=== PATIENT | female | born 1935 | race Caucasian/White ===

== ENCOUNTER → 2017-01-19 | Outpatient (CLI) | payer OTHER, BC ==
[2016-02-09 12:52] VITALS: BP 161/70
[2017-01-19 08:23] LABS: ALBUMIN 3.7 g/dL (3.4-5.0); BLOOD UREA NITROGEN 20 mg/dL (7-18); CALCIUM 9.5 mg/dL (8.5-10.1); CARBON DIOXIDE 27.1 mmol/L (21-32); CHLORIDE 105 mmol/L (98-107); CHOL/HDL RATIO 2.5 (0.0-5.0); CHOLESTEROL 179 mg/dL (0-200); CREATININE 1.17 mg/dL (0.55-1.02); GLUCOSE 110 mg/dL (65-99); HDL CHOLESTEROL 71 mg/dL (40-60); HEMOGLOBIN A1C 6.5 % (4.5-6.2); PHOSPHORUS 3.4 mg/dL (2.6-4.7); SODIUM 140 mmol/L (136-145); TRIGLYCERIDES 136 mg/dL (0-150); eGFR BLACK RACES 57 (>60); eGFR NON BLACK RACES 47 (>60)
[2017-01-19 08:27] LABS: EOSINOPHILS # (AUTO) 0.1 x10^3/uL (0.0-0.2); EOSINOPHILS % (AUTO) 2.5 % (0.9-2.9); HEMATOCRIT 36.5 % (36.0-47.0); HEMOGLOBIN 12.3 g/dL (12.0-16.0); LYMPHOCYTES # (AUTO) 1.2 X10^3/uL (1.3-2.9); LYMPHOCYTES % (AUTO) 23.9 % (21.0-51.0); MEAN CORPUSCULAR HEMOGLOBIN 31.8 pg (27.0-34.0); MEAN CORPUSCULAR HGB CONC 33.5 g/dL (33.0-35.0); MEAN CORPUSCULAR VOLUME 94.9 fL (80.0-100.0); MEAN PLATELET VOLUME 9.4 fL (7.4-11.0); MONOCYTES # (AUTO) 0.5 x10^3/uL (0.3-0.8); NEUTROPHILS % (AUTO) 61.6 % (42.0-75.0); PLATELET COUNT 195 X10^3/uL (150.0-450.0); RED BLOOD COUNT 3.85 X10^6/uL (3.5-5.4); RED CELL DISTRIBUTION WIDTH 13.3 % (11.6-16.5); WHITE BLOOD COUNT 4.8 X10^3/uL (3.6-10.0)
== END ==
LOC: LAB 07:35
PROVIDERS: ATTEND Internal Medicine
DX: I12.9 Hypertensive chronic kidney disease with stage 1 through stage 4 chronic kidney disease, or unspecified chronic kidney disease (principal); E11.9 Type 2 diabetes mellitus without complications
CPT/HCPCS: 36415; 80061; 80069; 83036; 85025

== ENCOUNTER → 2017-04-30 | Outpatient (CLI) | payer OTHER, BC ==
[2016-02-09 12:52] VITALS: BP 161/70
[2017-04-30 08:53] LABS: BASOPHILS % (AUTO) 1.1 % (0.2-1.0); EOSINOPHILS # (AUTO) 0.1 x10^3/uL (0.0-0.2); EOSINOPHILS % (AUTO) 2.8 % (0.9-2.9); HEMATOCRIT 35.4 % (36.0-47.0); HEMOGLOBIN 12.3 g/dL (12.0-16.0); LYMPHOCYTES # (AUTO) 1.3 X10^3/uL (1.3-2.9); LYMPHOCYTES % (AUTO) 28.5 % (21.0-51.0); MEAN CORPUSCULAR HEMOGLOBIN 32.2 pg (27.0-34.0); MEAN CORPUSCULAR HGB CONC 34.6 g/dL (33.0-35.0); MEAN CORPUSCULAR VOLUME 93.2 fL (80.0-100.0); MONOCYTES # (AUTO) 0.5 x10^3/uL (0.3-0.8); MONOCYTES % (AUTO) 11.2 % (0.0-13.0); NEUTROPHILS # (AUTO) 2.5 x10^3/uL (2.2-4.8); NEUTROPHILS % (AUTO) 56.4 % (42.0-75.0); PLATELET COUNT 222 X10^3/uL (150.0-450.0); RED CELL DISTRIBUTION WIDTH 12.9 % (11.6-16.5); WHITE BLOOD COUNT 4.4 X10^3/uL (3.6-10.0)
[2017-04-30 08:57] LABS: ALBUMIN 3.4 g/dL (3.4-5.0); BLOOD UREA NITROGEN 14 mg/dL (7-18); CALCIUM 9.3 mg/dL (8.5-10.1); CARBON DIOXIDE 30.6 mmol/L (21-32); CHLORIDE 100 mmol/L (98-107); PHOSPHORUS 3.5 mg/dL (2.6-4.7); SODIUM 135 mmol/L (136-145); eGFR BLACK RACES 51 (>60); eGFR NON BLACK RACES 42 (>60)
== END | disposition home or self-care (01) ==
LOC: LAB 08:02
PROVIDERS: ATTEND Internal Medicine
DX: I12.9 Hypertensive chronic kidney disease with stage 1 through stage 4 chronic kidney disease, or unspecified chronic kidney disease (principal); N18.3 Chronic kidney disease, stage 3 (moderate); E87.1 Hypo-osmolality and hyponatremia
CPT/HCPCS: 36415; 80069; 85025

== ENCOUNTER → 2017-08-09 | Outpatient (CLI) | payer OTHER, BC ==
[2016-02-09 12:52] VITALS: BP 161/70
[2017-08-09 09:11] LABS: ALBUMIN 3.7 g/dL (3.4-5.0); BLOOD UREA NITROGEN 17 mg/dL (7-18); CALCIUM 8.9 mg/dL (8.5-10.1); CARBON DIOXIDE 24.8 mmol/L (21-32); CHLORIDE 98 mmol/L (98-107); CHOL/HDL RATIO 1.9 (0.0-5.0); CHOLESTEROL 162 mg/dL (0-200); CREATININE 1.34 mg/dL (0.55-1.02); HDL CHOLESTEROL 86 mg/dL (40-60); PHOSPHORUS 3.6 mg/dL (2.6-4.7); SODIUM 133 mmol/L (136-145); TRIGLYCERIDES 61 mg/dL (0-150); URIC ACID 6.2 mg/dL (2.6-6.0); eGFR BLACK RACES 49 (>60); eGFR NON BLACK RACES 40 (>60)
[2017-08-09 09:21] LABS: EOSINOPHILS # (AUTO) 0.1 x10^3/uL (0.0-0.2); EOSINOPHILS % (AUTO) 1.9 % (0.9-2.9); HEMATOCRIT 35.8 % (36.0-47.0); HEMOGLOBIN 12.2 g/dL (12.0-16.0); LYMPHOCYTES # (AUTO) 1.2 X10^3/uL (1.3-2.9); LYMPHOCYTES % (AUTO) 23.9 % (21.0-51.0); MEAN CORPUSCULAR HGB CONC 34.1 g/dL (33.0-35.0); MEAN CORPUSCULAR VOLUME 93.9 fL (80.0-100.0); MEAN PLATELET VOLUME 9.4 fL (7.4-11.0); MONOCYTES # (AUTO) 0.6 x10^3/uL (0.3-0.8); MONOCYTES % (AUTO) 11.4 % (0.0-13.0); NEUTROPHILS % (AUTO) 61.8 % (42.0-75.0); PLATELET COUNT 232 X10^3/uL (150.0-450.0); RED BLOOD COUNT 3.82 X10^6/uL (3.5-5.4); RED CELL DISTRIBUTION WIDTH 13.1 % (11.6-16.5); WHITE BLOOD COUNT 4.8 X10^3/uL (3.6-10.0)
== END ==
LOC: LAB 08:33
PROVIDERS: ATTEND Internal Medicine
DX: I12.9 Hypertensive chronic kidney disease with stage 1 through stage 4 chronic kidney disease, or unspecified chronic kidney disease (principal); N18.3 Chronic kidney disease, stage 3 (moderate)
CPT/HCPCS: 36415; 80061; 80069; 84550; 85025

== ENCOUNTER → 2017-11-01 | Outpatient (CLI) | payer OTHER, BC ==
[2016-02-09 12:52] VITALS: BP 161/70
[2017-11-01 09:23] LABS: BASOPHILS % (AUTO) 1.1 % (0.2-1.0); EOSINOPHILS # (AUTO) 0.1 x10^3/uL (0.0-0.2); EOSINOPHILS % (AUTO) 1.3 % (0.9-2.9); HEMATOCRIT 35.9 % (36.0-47.0); HEMOGLOBIN 12.5 g/dL (12.0-16.0); LYMPHOCYTES # (AUTO) 1.2 X10^3/uL (1.3-2.9); LYMPHOCYTES % (AUTO) 27.7 % (21.0-51.0); MEAN CORPUSCULAR HEMOGLOBIN 32.2 pg (27.0-34.0); MEAN CORPUSCULAR HGB CONC 34.9 g/dL (33.0-35.0); MEAN CORPUSCULAR VOLUME 92.3 fL (80.0-100.0); MONOCYTES # (AUTO) 0.5 x10^3/uL (0.3-0.8); MONOCYTES % (AUTO) 11.2 % (0.0-13.0); NEUTROPHILS # (AUTO) 2.6 x10^3/uL (2.2-4.8); NEUTROPHILS % (AUTO) 58.7 % (42.0-75.0); PLATELET COUNT 218 X10^3/uL (150.0-450.0); RED BLOOD COUNT 3.89 X10^6/uL (3.5-5.4); RED CELL DISTRIBUTION WIDTH 12.8 % (11.6-16.5); WHITE BLOOD COUNT 4.5 X10^3/uL (3.6-10.0)
[2017-11-01 09:36] LABS: HEMOGLOBIN A1C 5.9 %
[2017-11-01 09:43] LABS: BLOOD UREA NITROGEN 25 mg/dL (7-18); CALCIUM 8.7 mg/dL (8.5-10.1); CARBON DIOXIDE 23.5 mmol/L (21-32); CHLORIDE 97 mmol/L (98-107); CREATININE 1.57 mg/dL (0.55-1.02); PHOSPHORUS 3.8 mg/dL (2.6-4.7); SODIUM 130 mmol/L (136-145); URIC ACID 5.7 mg/dL (2.6-6.0); eGFR BLACK RACES 41 (>60); eGFR NON BLACK RACES 34 (>60)
== END ==
LOC: LAB 08:50
PROVIDERS: ATTEND Internal Medicine
DX: I12.9 Hypertensive chronic kidney disease with stage 1 through stage 4 chronic kidney disease, or unspecified chronic kidney disease (principal); N18.3 Chronic kidney disease, stage 3 (moderate); E11.22 Type 2 diabetes mellitus with diabetic chronic kidney disease
CPT/HCPCS: 36415; 80069; 83036; 84550; 85025

== ENCOUNTER 2023-09-22 07:46 | Observation (INO) ==
--- NOTE | 2023-09-22 08:02 | DR.NAUSEAF ---
HPI Time Seen Time Seen by Provider: 09/22/23 08:01 Complaints Chief Complaint Doctors Comments: 38-year-old female presents for evaluation. Patient has been ill over the past 2 days. She is having frequent nausea and vomiting. Nothing caused it that she knows of, no one else ill at home. Having frequent episodes of nausea and vomiting, denies diarrhea, denies abdominal pain. Having no fever, no chills, no URI symptoms. Denies any urinary issues.. States she has been moving her bowels. Reviewed Nurses Notes Reviewed: Yes Source History Provided: Patient Mode of Arrival Mode of Arrival: Wheelchair PMH PM Past Medical History: Hypertension Past Surgical History: Yes Surgical History: Hysterectomy Family History Family Medical History: [place], Coronary Artery Disease and Hypertension Social History Does patient currently use any type of tobacco product: No Alcohol Use: None Do you use any recreational Drugs:: No ROS Review of Systems Constitutional: Weakness Eyes: No Symptoms Reported ENTM: No Symptoms Reported Respiratoy: No Symptoms Reported Cardiovascular: No Symptoms Reported Gastrointestinal/Abdominal: See HPI Genitourinary: No Symptoms Reported Neurological: No Symptoms Reported Musculoskeletal: No Symptoms Reported Integumentary: No Symptoms Reported Psychiatric: No Symptoms Reported All Other Systems: Reviewed and Negative PE Vital Signs Vitals: Vital Signs Temperature 97.9 F Pulse Rate 84 Pulse Rate 103 Pulse Rate 112 Pulse Rate 106 Respiratory Rate 20 Blood Pressure 186/91 Blood Pressure 197/95 Blood Pressure 197/95 Blood Pressure 192/91 Blood Pressure 184/89 Blood Pressure 170/87 Blood Pressure 189/79 Blood Pressure 186/72 Blood Pressure 171/72 Blood Pressure 185/76 Blood Pressure 174/74 Blood Pressure 187/74 Blood Pressure 187/84 Blood Pressure 225/105 Blood Pressure 183/86 Blood Pressure 227/111 Blood Pressure 221/109 O2 Sat by Pulse Oximetry 96 O2 Sat by Pulse Oximetry 97 O2 Sat by Pulse Oximetry 96 O2 Sat by Pulse Oximetry 96 General General Appearance: Alert and In No Apparent Distress Eyes Eye exam: PERRL and EOMI ENT ENT Exam: Mucous Membranes Moist Neck Neck Exam: Normal Inspection; negative Tenderness Respiratory Respiratory Exam: Normal Lung Sounds Bilat; negative Accessory Muscle Use or Respiratory Distress Cardiovascular Cardiovascular Exam: Regular Rate, Normal Rhythm and Normal Heart Sounds Abdominal Exam Abdominal Exam: Normal Bowel Sounds and Soft; negative Tenderness, Guarding or Rebound Extremities Extremities Exam: Normal Inspection Neurologic Neurological Exam: Alert, Oriented X3 and CN II-XII Intact; negative Motor Sensory Deficit Skin Skin Exam: Warm and Dry COURSE Treatment Treatment: 88-year-old female with nausea, vomiting for 2 days. PE benign, patient in no distress. Open initiated. Patient given IV fluids, IV Zofran/protonix. 0935 -still with nausea, no active vomiting. Labs show the sodium below 131, creatinine elevated 2.45. + degree of renal injury, last Cr 1.29 last month. Patient given additional IV fluids, additional IV Zofran. Troponin slightly elevated at 66, probably related to her dehydration. Will obtain EKG and repeat a troponin in 2 hours. 1000 -EKG shows sinus tachycardia, [address] depression of the inferior leads, 2, 3, aVF, as well as V5 V6. Patient in no distress, not having any chest discomfort. If the troponin remains at this level, will recommend admission here for further hydration. Repeat troponin 70.1, minimal bump. Remains chest pain free. 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 Will consult with cardiology in view of abnormal troponin. ROR Labs Reviewed Laboratory Results Reviewed?: Yes 09/22/23 08:25 09/22/23 08:25 Laboratory: WBC 10.8 X10^3/uL (3.6-10.0) H 09/22/23 08:25 RBC 4.82 X10^6/uL (3.5-5.4) 09/22/23 08:25 Hgb 15.3 g/dL (12.0-16.0) 09/22/23 08:25 Hct 44.6 % (36.0-47.0) 09/22/23 08:25 MCV 92.5 fL (80.0-100.0) 09/22/23 08:25 MCH 31.9 pg (27.0-34.0) 09/22/23 08:25 MCHC 34.5 g/dL (33.0-35.0) 09/22/23 08:25 RDW 13.5 % (11.6-16.5) 09/22/23 08:25 Plt Count 296 X10^3/uL (150.0-450.0) 09/22/23 08:25 Plt Count Comment Adequate (ADEQUATE) 09/22/23 08:25 MPV 8.7 fL (7.4-11.0) 09/22/23 08:25 Neut % (Auto) 92.0 % (42.0-75.0) H 09/22/23 08:25 Lymph % (Auto) 4.4 % (21.0-51.0) L 09/22/23 08:25 [place] % (Auto) 3.4 % (0.0-13.0) 09/22/23 08:25 Eos % (Auto) 0.0 % (0.9-2.9) L 09/22/23 08:25 Baso % (Auto) 0.2 % (0.2-1.0) 09/22/23 08:25 Neut # (Auto) 10.0 x10^3/uL (2.2-4.8) H 09/22/23 08:25 Lymph # (Auto) 0.5 X10^3/uL (1.3-2.9) L 09/22/23 08:25 [place] # (Auto) 0.4 x10^3/uL (0.3-0.8) 09/22/23 08:25 Eos # (Auto) 0.0 x10^3/uL (0.0-0.2) 09/22/23 08:25 Baso # (Auto) 0.0 X10^3/uL (0.0-0.1) 09/22/23 08:25 Absolute Nucleated RBC 0.1 /100WBC 09/22/23 08:25 Total Counted 100 09/22/23 08:25 Neutrophils % (Manual) 87 % (39-76) H 09/22/23 08:25 Lymphocytes % (Manual) 5 % (13-43) L 09/22/23 08:25 Monocytes % (Manual) 8 % (4-9) 09/22/23 08:25 Plt Morphology Comment Normal (NORMAL) 09/22/23 08:25 RBC Morphology Normal (NORMAL) 09/22/23 08:25 Sodium 131 mmol/L (136-145) L 09/22/23 08:25 Corrected Sodium 132 mmol/L (136-145) L 09/22/23 08:25 Potassium 3.6 mmol/L (3.5-5.1) 09/22/23 08:25 Chloride 91 mmol/L (98-107) L 09/22/23 08:25 Carbon Dioxide 29.2 mmol/L (21-32) 09/22/23 08:25 BUN 54 mg/dL (7-18) H 09/22/23 08:25 Creatinine 2.45 mg/dL (0.55-1.02) H 09/22/23 08:25 Est GFR (MDRD) Af Amer 24 (>60) L 09/22/23 08:25 Est GFR (MDRD) Non-Af 20 (>60) L 09/22/23 08:25 Glucose 160 mg/dL (65-99) H 09/22/23 08:25 Calcium 9.1 mg/dL (8.5-10.1) 09/22/23 08:25 Corrected Calcium TNP 09/22/23 08:25 Total Bilirubin 0.60 mg/dL (0.2-1.0) 09/22/23 08:25 AST 25 Units/L (15-37) 09/22/23 08:25 ALT 17 Units/L (12-78) 09/22/23 08:25 Alkaline Phosphatase 99 Units/L (46-116) 09/22/23 08:25 Troponin I High Sens 70.1 ng/L (4.0-60.0) H* 09/22/23 10:33 Total Protein 7.9 g/dL (6.4-8.2) 09/22/23 08:25 Albumin 3.7 g/dL (3.4-5.0) 09/22/23 08:25 Globulin 4.2 g/dL (2.5-4.5) 09/22/23 08:25 Albumin/Globulin Ratio 0.9 Ratio (1.1-2.1) L 09/22/23 08:25 Lipase 31 Units/L (16-77) 09/22/23 08:25 Na low at 131, Cr elevated 2.45. EKG Rate: 110 [place]: Normal Rhythm: ST Block: RBBB ST: Inf (ST depression of inferior leads, V5,V6.) Opioid Opioid Risk Tool Age (Javier box if 16-45): No History of Preadolescent Sexual Abuse: No Total: 0 Total Score Risk Category: Low Risk Copyright: [place] DUFFY predicting aberrant behaviors Discharge Plan Diagnosis Discharge Problem: Vomiting, Acute kidney injury, Elevated troponin Discharge Plan Patient Disposition: ADMITTED INPATIENT Condition: Stable Orders to Discharge Patient Discharge Orders: Transfer (Routine); Ordered 09/22/23 Ordered By: Tha Parkinson
[2023-09-22] MEDS ORDERED: ZOFRAN INJ 4 MG VIAL IVP ONE ×2 (08:06→09:37)
[2023-09-22] MEDS ORDERED: PROTONIX INJ 40 MG VIAL IVP ONE (08:06)
[2023-09-22] MEDS ORDERED: NS 500 ML IV 500 ML IV ONE ×2 (08:07→08:08)
[2023-09-22] MEDS ORDERED: ZOFRAN INJ 4 MG VIAL ONE ×2 (08:08→09:34)
[2023-09-22] MEDS ORDERED: PROTONIX INJ 40 MG VIAL ONE (08:08)
[2023-09-22] MEDS ORDERED: APRESOLINE INJ 20 MG VIAL ONE (08:32)
[2023-09-22] MEDS ORDERED: APRESOLINE INJ 20 MG VIAL IVP ONE (08:34)
[2023-09-22 09:00] LABS: BASOPHILS % (AUTO) 0.2 % (0.2-1.0); HEMATOCRIT 44.6 % (36.0-47.0); HEMOGLOBIN 15.3 g/dL (12.0-16.0); LYMPHOCYTES # (AUTO) 0.5 X10^3/uL (1.3-2.9); LYMPHOCYTES % (AUTO) 4.4 % (21.0-51.0); MEAN CORPUSCULAR HEMOGLOBIN 31.9 pg (27.0-34.0); MEAN CORPUSCULAR HGB CONC 34.5 g/dL (33.0-35.0); MEAN CORPUSCULAR VOLUME 92.5 fL (80.0-100.0); MEAN PLATELET VOLUME 8.7 fL (7.4-11.0); MONOCYTES # (AUTO) 0.4 x10^3/uL (0.3-0.8); MONOCYTES % (AUTO) 3.4 % (0.0-13.0); PLATELET COUNT 296 X10^3/uL (150.0-450.0); RED BLOOD COUNT 4.82 X10^6/uL (3.5-5.4); RED CELL DISTRIBUTION WIDTH 13.5 % (11.6-16.5); WHITE BLOOD COUNT 10.8 X10^3/uL (3.6-10.0)
[2023-09-22 09:29] LABS: ALANINE AMINOTRANSFERASE 17 Units/L (12-78); ALBUMIN 3.7 g/dL (3.4-5.0); ALKALINE PHOSPHATASE 99 Units/L (46-116); ASPARTATE AMINO TRANSFERASE 25 Units/L (15-37); BLOOD UREA NITROGEN 54 mg/dL (7-18); CALCIUM 9.1 mg/dL (8.5-10.1); CARBON DIOXIDE 29.2 mmol/L (21-32); CHLORIDE 91 mmol/L (98-107); COR NA(FOR HYPERGLY) 132 mmol/L (136-145); CREATININE 2.45 mg/dL (0.55-1.02); GLUCOSE 160 mg/dL (65-99); LIPASE 31 Units/L (16-77); POTASSIUM 3.6 mmol/L (3.5-5.1); SODIUM 131 mmol/L (136-145); TOTAL PROTEIN 7.9 g/dL (6.4-8.2); eGFR NON BLACK RACES 20 (>60)
[2023-09-22 09:30] LABS: PLATELET MORPHOLOGY COMMENT NORMAL (NORMAL)
[2023-09-22] MEDS ORDERED: NS 500 ML IV 500 ML IV SCH (09:31)
[2023-09-22] MEDS ORDERED: NS 1,000 ML IV 1,000 ML ONE (09:33)
[2023-09-22] MEDS: NS 1,000 ML IV 1,000 ML IV SCH ×2 (09:39→18:15)
--- NOTE | 2023-09-22 10:01 | EKG ---
Test Reason : vomiting, elevated troponin Blood Pressure : */* mmHG Vent. Rate : 110 BPM Atrial Rate : 110 BPM P-R Int : 124 ms QRS Dur : 110 ms QT Int : 362 ms P-R-T Axes : 77 42 -64 degrees QTc Int : 489 ms Sinus tachycardia with premature supraventricular complexes Possible Left atrial enlargement Right bundle branch block Marked ST abnormality, possible inferior subendocardial injury Abnormal ECG No previous ECGs available Confirmed by Junior Hernandez MD ([id number]) on 09/22/2023 1:53:07 PM Referred By: Confirmed By: Junior Hernandez MD
[2023-09-22] MEDS ORDERED: LOPRESSOR INJ 5 MG AMP IVP ONE ×2 (11:11→13:22)
[2023-09-22] MEDS ORDERED: LOPRESSOR INJ 5 MG AMP ONE ×2 (11:12→13:23)
[2023-09-22] MEDS ORDERED: CONSULT PHARMACY - POTASSIUM & MAGNESIUM XX SCH ×2 (12:00→19:00)
[2023-09-22] MEDS ORDERED: ZOFRAN INJ 4 MG VIAL IVP PRN (12:00)
[2023-09-22] MEDS ORDERED: POTASSIUM CHLORIDE LIQ PO NR (14:00)
[2023-09-22] MEDS ORDERED: ASPIRIN ONE (14:14)
--- NOTE | 2023-09-22 14:33 | EKG ---
Test Reason : EKG CHANGES Blood Pressure : */* mmHG Vent. Rate : 87 BPM Atrial Rate : 87 BPM P-R Int : 140 ms QRS Dur : 112 ms QT Int : 410 ms P-R-T Axes : 79 15 -41 degrees QTc Int : 493 ms Normal sinus rhythm Right bundle branch block T wave abnormality, consider inferior ischemia Abnormal ECG When compared with ECG of 22-SEP-2023 09:47, premature supraventricular complexes are no longer present ST no longer depressed in Inferior leads ST less depressed in Anterior leads T wave inversion no longer evident in Lateral leads Confirmed by Junior Hernandez MD ([id number]) on 09/23/2023 7:48:18 AM Referred By: Confirmed By: Junior Hernandez MD
[2023-09-22] MEDS ORDERED: MAG-OX TAB PO ONE (15:00)
[2023-09-22] MEDS ORDERED: MICRO K EXTEN CAP 10 MEQ PO NR (15:00)
[2023-09-22] MEDS ORDERED: NITRODUR PATCH 0.2 MG/HR TD ONE (15:10)
[2023-09-22] MEDS ORDERED: LOVENOX INJ 60 MG SYR SC NR (15:10)
--- NOTE | 2023-09-22 15:10 | DR.CONSULT ---
CONSULT Consultation for Day of: Date: 09/22/23 Chief Complaint Chief Complaint: 88 yo female with pafib, cad with stent to RCA 2017- came to ER because n/v since Wednesday- denied CP- couldnt hold down meds - bp as high as 220 in er- hr 100s-no asa/doac for awhile- takes coreg/clonidine for bp- labs showed cr 2.45/bun 54 ( up from usual most likely due to vol depletion- also # trops elevated- ekg: marked st abnormality from old ekg c/w subendocardial [place]- f/u ekg: st improved alittle Allergies Allergies Allergy/AdvReac Type Severity Reaction Status Date / Time No Known Allergies Allergy Verified 09/22/23 08:05 Past Medical History Past Medical History: Hypertension Past Surgical History Surgical History: Hysterectomy Family History Family Medical History: [place], Coronary Artery Disease and Hypertension Social History Does patient currently use any type of tobacco product: No Have you used tobacco products in the last 12 months: No Type of Tobacco Use: None Does any household member use tobacco: No Alcohol Use: None Drug Use: None Medications Home Medications: No Known Allergies Allergy (Verified 09/22/23 08:05) CONTINUE taking the following medications carvedilol 3.125 mg tablet 3.125 mg PO QDAY 09/22/23 [History] clonidine HCl 0.2 mg tablet 0.2 mg PO BID 09/22/23 [History] clopidogrel 75 mg tablet 75 mg PO QDAY 09/22/23 [History] eplerenone 25 mg tablet 25 mg PO QDAY 09/22/23 [History] ondansetron 8 mg disintegrating tablet 8 mg PO Q8H PRN 09/22/23 [History] Physical Exam Vital Signs: Vital Signs Temperature 97.9 F Temperature 97.9 F Pulse Rate 84 Pulse Rate 90 Pulse Rate 91 Pulse Rate 89 Pulse Rate 88 Pulse Rate 84 Pulse Rate 103 Pulse Rate 112 Pulse Rate 106 Respiratory Rate 18 Respiratory Rate 20 Blood Pressure 130/70 Blood Pressure 218/93 Blood Pressure 174/103 Blood Pressure 181/112 Blood Pressure 181/86 Blood Pressure 188/90 Blood Pressure 186/91 Blood Pressure 197/95 Blood Pressure 197/95 Blood Pressure 192/91 Blood Pressure 184/89 Blood Pressure 170/87 Blood Pressure 189/79 Blood Pressure 186/72 Blood Pressure 171/72 Blood Pressure 185/76 Blood Pressure 174/74 Blood Pressure 187/74 Blood Pressure 187/84 Blood Pressure 225/105 Blood Pressure 183/86 Blood Pressure 227/111 Blood Pressure 221/109 O2 Sat by Pulse Oximetry 97 O2 Sat by Pulse Oximetry 96 O2 Sat by Pulse Oximetry 96 O2 Sat by Pulse Oximetry 97 O2 Sat by Pulse Oximetry 97 O2 Sat by Pulse Oximetry 96 O2 Sat by Pulse Oximetry 97 O2 Sat by Pulse Oximetry 96 O2 Sat by Pulse Oximetry 96 alert ox3 p84 bp 130/70 no jvd, clear lungs rrr soft lennie no edema Plan (1) NSTEMI (non-ST elevated myocardial infarction): Status: Acute Narrative Support Text: feel n/v were her cardiac symptoms or no meds and elevated hr/bp caused event Plan: volume to reverse CR- asa/bb/heparin/nitro- transfer to [facility] /[facility] in am for cath as long as cr improving (2) Hypertension: Status: Acute (3) Acute kidney injury: Status: Acute
[2023-09-22] MEDS ORDERED: ASPIRIN 81 MG CHEWTAB PO SCH (16:00)
[2023-09-22 16:21] LABS: BILIRUBIN,URINE NEGATIVE (NEGATIVE); BLOOD/HEMOGLOBIN,URINE 3+ (NEGATIVE); GLUCOSE, URINE NEGATIVE (NEGATIVE); KETONES,URINE 1+ (NEGATIVE); LEUKOCYTE ESTERASE ,URINE NEGATIVE (NEGATIVE); NITRITES,URINE NEGATIVE (NEGATIVE); PROTEIN,URINE 4+ (NEGATIVE); UROBILINOGEN,URINE NORMAL (NORMAL)
[2023-09-22] MEDS ORDERED: COREG TAB 3.125 MG ONE (16:21)
[2023-09-22] MEDS ORDERED: CATAPRES TAB 0.2 MG ONE (16:21)
[2023-09-22] MEDS: CATAPRES TAB 0.2 MG PO SCH ×2 (16:26→20:13)
[2023-09-22 16:29] LABS: APPEARANCE,URINE SLIGHTLY HAZY (CLEAR); COLOR,URINE YELLOW (YELLOW)
[2023-09-22 16:30] LABS: BACTERIA,URINE TRACE /HPF (NEGATIVE); RBC,URINE 0-2 /HPF (0-3); SQUAMOUS EPITHELIAL CELL,UR FEW /HPF (NEGATIVE)
[2023-09-22 16:31] LABS: HYALINE CASTS, URINE FEW /LPF (NEGATIVE)
[2023-09-22 18:36] LABS: CARBON DIOXIDE 30.1 mmol/L (21-32); CREATININE 2.05 mg/dL (0.55-1.02); POTASSIUM 3.7 mmol/L (3.5-5.1)
[2023-09-22 18:45] LABS: CALCIUM 8.3 mg/dL (8.5-10.1)
[2023-09-22] MEDS: MAG-OX TAB PO SCH ×2 (20:13→21:11)
[2023-09-22] MEDS ORDERED: K-DUR TAB 20 MEQ PO SCH (21:00)
[2023-09-22 23:21] VITALS: PULSE 68; O2SAT 98
[2023-09-23] MEDS: NS 1,000 ML IV 1,000 ML IV SCH (02:13)
[2023-09-23 05:19] VITALS: BP 115/58; RESP 20; TEMP 98
[2023-09-23] MEDS ORDERED: PROTONIX INJ 40 MG VIAL IVP SCH (09:00)
[2023-09-23] MEDS ORDERED: COREG TAB 3.125 MG PO SCH (09:00)
[2023-09-23] MEDS ORDERED: PLAVIX PO SCH (09:00)
[2023-09-23] MEDS ORDERED: EPLERENONE 25 MG PO SCH (09:00)
== END 2023-09-23 05:10 | disposition short-term general hospital (02) ==
LOC: ER 07:46 → U 07:46 → MED/SURG 07:46 → U 11:50
PROVIDERS: ADMIT Obstetrics & Gynecology Obstetrics; ATTEND Obstetrics & Gynecology Obstetrics
DX: R11.2 Nausea with vomiting, unspecified; R73.09 Other abnormal glucose; R53.1 Weakness; I21.4 Non-ST elevation (NSTEMI) myocardial infarction; E87.6 Hypokalemia; E83.42 Hypomagnesemia; R77.8 Other specified abnormalities of plasma proteins; I10 Essential (primary) hypertension; N17.8 Other acute kidney failure

== ENCOUNTER 2025-02-18 15:57 | Observation (INO) ==
--- NOTE | 2025-02-18 16:42 | DR.GENAD ---
HPI Time Seen Time Seen by Provider: 02/18/25 16:41 PCP Primary Care Physician: Tony HPI Comment HPI Comment: Patient states she has stopped her anticoagulation medicines about 2 weeks ago. Today she had an episode of difficulty with her speech and weakness in her left hand dropping her pen. Patient was brought into the ER and stroke protocol was initiated. I spoke with Dr. Kenny from [facility] and he is suspected TIA instead of stroke. He recommended starting Plavix 200 mg today as a loading dose as well as aspirin 325. He recommended MRI in the morning and a TTE. CTA of head and neck was ordered but unable to perform due to patient's renal function. Complaint/Symptoms Chief Complaint:: Patient c/o cough, decreased appetite and no urine for 2 days until today when she did urinate. Also reports that she was doing a cross word puzzle and dropped her pen and then couldnt talk for approx 5 minutes. she does not have trouble speaking at this time. neuro is intact with equal coverage specialist rn. COVID-19 Coronavirus risk:travel/contact w/high risk person: No Has patient experienced Coronavirus symptoms: No Source History Provided: Patient and Family Member Mode of Arrival Mode of Arrival: Wheelchair Timing Onset of Chief Complaint: 02/18/25 PMH PMH Past Medical History: Yes Past Medical History: CHF, Hypertension and CA Past Medical History Comment: bleeding ulcer Past Surgical History: Yes Surgical History: Angioplasty/Stents and Hysterectomy Family History History of Family Medical Conditions: Yes Family Medical History: [place], Coronary Artery Disease and Hypertension Social History Type of Tobacco Use: None Alcohol Use: None Do you use any recreational Drugs:: No Lives With: Family Lives Where: Home Travel Risk Coronavirus risk:travel/contact w/high risk person: No Has patient experienced Coronavirus symptoms: No Infectious screening Have you traveled outside the country in the last 6 months?: No Isolation: Standard ROS Review of Systems Constitutional: No Symptoms Reported Eyes: No Symptoms Reported ENTM: No Symptoms Reported Respiratoy: No Symptoms Reported Cardiovascular: No Symptoms Reported Gastrointestinal/Abdominal: No Symptoms Reported Genitourinary: No Symptoms Reported Neurological: See HPI (Symptoms resolved at this time) Musculoskeletal: No Symptoms Reported Integumentary: No Symptoms Reported Hematologic/Lymphatic: No Symptoms Reported Endocrine: No Symptoms Reported Psychiatric: No Symptoms Reported All Other Systems: Reviewed and Negative PE Vital Signs Vitals: Vital Signs Temperature 98.1 F Pulse Rate 90 Respiratory Rate 22 Blood Pressure 137/77 O2 Sat by Pulse Oximetry 96 General Limitations: No Limitations General Appearance: Alert and In No Apparent Distress Head Head Exam: Normal Inspection Eyes Eye exam: Normal Appearance ENT ENT Exam: Normal Exam External Ear Exam: Normal External Inspection TM/Canal Exam: Bilateral: Normal Nose Exam: Normal Nose Exam Mouth Exam: Normal Inspection Throat Exam: Normal Inspection Neck Neck Exam: Normal Inspection Chest Chest Inspection: Normal Inspection Respiratory Respiratory Exam: Normal Lung Sounds Bilat Respiratory Exam: Bilateral: Clear to Auscultation Cardiovascular Cardiovascular Exam: Regular Rate and Normal Rhythm Abdominal Exam Abdominal Exam: Normal Inspection, Normal Bowel Sounds and Soft Extremities Extremities Exam: Normal Inspection Back Back Exam: Normal Inspection Neurologic Neurological Exam: Alert and Oriented X3 Psychiatric Psychiatric Exam: Normal Affect and Normal Mood Skin Skin Exam: Warm, Dry, Intact and Normal Color COURSE Treatment Treatment: Patient symptoms completely resolved, her blood pressure did elevate again. Continuing to manage. Discussed need of admission with patient and family and they are agreeable to admission. Consultation Called: 19:33 Consultation Comments: Discussed case with Dr. Lam and he is agreeable to admission. Discussed case with with teleneurology. He recommended admission and starting aspirin and Plavix. The CTA of head and neck that he recommended was unable to be performed due to patient's renal function. He recommended MRI in the morning and TTE as well. [facility]OR Labs Reviewed 02/18/25 16:23 02/18/25 16:23 Laboratory: WBC 7.0 X10^3/uL (3.6-10.0) 02/18/25 16:23 RBC 4.00 X10^6/uL (3.5-5.4) 02/18/25 16:23 Hgb 12.7 g/dL (12.0-16.0) 02/18/25 16:23 Hct 36.4 % (36.0-47.0) 02/18/25 16:23 MCV 91.0 fL (80.0-100.0) 02/18/25 16:23 MCH 31.7 pg (27.0-34.0) 02/18/25 16:23 MCHC 34.8 g/dL (33.0-35.0) 02/18/25 16:23 RDW 14.3 % (11.6-16.5) 02/18/25 16:23 Plt Count 265 X10^3/uL (150.0-450.0) 02/18/25 16:23 MPV 8.6 fL (7.4-11.0) 02/18/25 16:23 Neut % (Auto) 54.1 % (42.0-75.0) 02/18/25 16:23 Lymph % (Auto) 33.7 % (21.0-51.0) 02/18/25 16:23 [place] % (Auto) 10.2 % (0.0-13.0) 02/18/25 16:23 Eos % (Auto) 1.1 % (0.9-2.9) 02/18/25 16:23 Baso % (Auto) 0.9 % (0.2-1.0) 02/18/25 16:23 Neut # (Auto) 3.8 x10^3/uL (2.2-4.8) 02/18/25 16:23 Lymph # (Auto) 2.4 X10^3/uL (1.3-2.9) 02/18/25 16:23 [place] # (Auto) 0.7 x10^3/uL (0.3-0.8) 02/18/25 16:23 Eos # (Auto) 0.1 x10^3/uL (0.0-0.2) 02/18/25 16:23 Baso # (Auto) 0.1 X10^3/uL (0.0-0.1) 02/18/25 16:23 Absolute Nucleated RBC 0.1 /100WBC 02/18/25 16:23 PT 13.4 SECONDS (11.8-14.3) 02/18/25 16:23 INR Target Range - 02/18/25 16:23 INR 1.01 (0.8-1.3) 02/18/25 16:23 APTT 29.8 SECONDS (22.9-36.5) 02/18/25 16:23 PTT Comment - 02/18/25 16:23 Fibrinogen 433 mg/dL (239-489) 02/18/25 16:23 Sodium 128 mmol/L (136-145) L 02/18/25 16:23 Corrected Sodium TNP 02/18/25 16:23 Potassium 3.9 mmol/L (3.5-5.1) 02/18/25 16:23 Chloride 92 mmol/L (98-107) L 02/18/25 16:23 Carbon Dioxide 24.9 mmol/L (21-32) 02/18/25 16:23 BUN 31 mg/dL (7-18) H 02/18/25 16:23 Creatinine 2.84 mg/dL (0.55-1.02) H 02/18/25 16:23 Est GFR (MDRD) Af Amer 20 (>60) L 02/18/25 16:23 Est GFR (MDRD) Non-Af 17 (>60) L 02/18/25 16:23 Glucose 97 mg/dL (65-99) 02/18/25 16:23 POC Glucose (mg/dL) 101 mg/dL (65-99) H 02/18/25 16:48 Hemoglobin A1c 5.9 % 02/18/25 16:23 Calcium 9.0 mg/dL (8.5-10.1) 02/18/25 16:23 Corrected Calcium TNP 02/18/25 16:23 Total Bilirubin 0.40 mg/dL (0.2-1.0) 02/18/25 16:23 AST 20 Units/L (15-37) 02/18/25 16:23 ALT 16 Units/L (12-78) 02/18/25 16:23 Alkaline Phosphatase 97 Units/L (46-116) 02/18/25 16:23 Creatine Kinase 68 Units/L (26-192) 02/18/25 16:23 Troponin I High Sens 55.9 ng/L (4.0-60.0) 02/18/25 16:23 B-Natriuretic Peptide 91.3 pg/mL (0-79) H 02/18/25 16:23 Total Protein 8.6 g/dL (6.4-8.2) H 02/18/25 16:23 Albumin 4.0 g/dL (3.4-5.0) 02/18/25 16:23 Globulin 4.6 g/dL (2.5-4.5) H 02/18/25 16:23 Albumin/Globulin Ratio 0.9 Ratio (1.1-2.1) L 02/18/25 16:23 Triglycerides 123 mg/dL (0-150) 02/18/25 16:23 Cholesterol 175 mg/dL (0-200) 02/18/25 16:23 LDL Cholesterol, Calc 76 mg/dL (0-100) 02/18/25 16:23 HDL Cholesterol 74 mg/dL (40-60) H 02/18/25 16:23 Cholesterol/HDL Ratio 2.4 (0.0-5.0) 02/18/25 16:23 Blood Type B POSITIVE 02/18/25 17:28 Blood Type B POSITIVE 02/18/25 17:28 Antibody Screen Negative 02/18/25 17:28 Opioid Opioid Risk Tool Age (Javier box if 16-45): No History of Preadolescent Sexual Abuse: No Total: 0 Total Score Risk Category: Low Risk Copyright: [place] DUFFY predicting aberrant behaviors Discharge Plan Diagnosis Discharge Problem: Brain TIA, Hypertension, Labile blood pressure, CKD (chronic kidney disease), Acute kidney injury Discharge Plan Patient Disposition: ADMITTED INPATIENT Condition: Stable Prescriptions: No Action carvedilol 3.125 mg tablet 3.125 mg PO BID Health Concerns: Post Hospitalization: new medications and changes needed to prevent readmission or further decline. Pt educated and given instructions on all concerns. Plan of Treatment: Continue with present treatment and follow up plan. Pt is to keep follow up appointment as instructed and take medications as ordered. Orders to Discharge Patient Discharge Orders: Transfer (Routine); Ordered 02/18/25 Ordered By: Manny Gleason Follow ups/Referrals Follow ups/Referrals: ,Misc [Primary Care Provider] - 3 days Instructions Stand Alone Forms: Find Help Web Site, Post Hospital Follow Up Care Print Language: EMIRATI
--- NOTE | 2025-02-18 16:52 | EKG ---
Test Reason : stroke alert Blood Pressure : */* mmHG Vent. Rate : 78 BPM Atrial Rate : 78 BPM P-R Int : 142 ms QRS Dur : 114 ms QT Int : 426 ms P-R-T Axes : 79 50 43 degrees QTc Int : 485 ms Normal sinus rhythm Incomplete right bundle branch block Nonspecific ST abnormality Abnormal ECG When compared with ECG of 22-SEP-2023 14:22, T wave inversion less evident in Inferior leads T wave inversion no longer evident in Anterior leads Confirmed by Junior Hernandez MD ([id number]) on 02/19/2025 7:20:49 AM Referred By: Confirmed By: Junior Hernandez MD
[2025-02-18 17:08] LABS: MEAN PLATELET VOLUME 8.6 fL (7.4-11.0); RED CELL DISTRIBUTION WIDTH 14.3 % (11.6-16.5)
[2025-02-18 17:15] LABS: INR 1.01 (0.8-1.3)
[2025-02-18] MEDS: ASPIRIN PO ONE (17:16)
[2025-02-18] MEDS: PLAVIX PO ONE (17:17)
[2025-02-18 17:19] LABS: CHOL/HDL RATIO 2.4 (0.0-5.0); CREATININE 2.84 mg/dL (0.55-1.02); eGFR NON BLACK RACES 17 (>60)
--- NOTE | 2025-02-18 17:34 | CT ---
EXAM: BRAIN W/O CON HISTORY: stroke alert; COMPARISON: CT of the brain March 21, 2018 TECHNIQUE: CT of the brain without contrast FINDINGS: No hemorrhage or extra-axial collection. No midline shift or mass effect. Appropriate ventricular size. Microvascular ischemic changes are noted in the bilateral periventricular white matter. The mastoid air cells are clear. Mucoperiosteal thickening in the right maxillary sinus is moderate. No skull fracture. IMPRESSION: Nothing acute. All CT scans at this facility use dose modulation, iterative reconstruction, and/or weight based dosing when appropriate to reduce radiation dose to as low as reasonably achievable. THIS IS AN ELECTRONICALLY VERIFIED FINAL REPORT 02/18/2025 5:31 PM - Electronically signed by Raffaele Goodrich MD
--- NOTE | 2025-02-18 17:57 | DR.CONSULT ---
CONSULT Consultation for Day of: Date: 02/18/25 Chief Complaint Chief Complaint: [facility] Patient Name: Nory Santana Date of : 1935 Identification Number: Date of Service: 02/18/2025 16:43:58 Diagnosis: G45.9 - Transient cerebral ischemic attack, unspecified Impression: 89 yo LH F with PMH of HTN, CHF, CA presents to ED with cough, decreased appetite and transient left hand weakness and speech difficulty. NIHSS of 0. CTH without hemorrhage. CTA head and neck pending. Thrombolytics not recommended due to resolved symptoms. Syndrome is most concerning for a transient ischemic attack. Recommend initiating dual anti platelet therapy, and admission for expedited stroke work up. Our recommendations are outlined below. Recommendations: Stroke/Telemetry Floor Neuro Checks (Q4) Bedside Swallow Eval DVT Prophylaxis IV Fluids, Normal Saline Euglycemia and Avoid Hyperthermia (PRN Acetaminophen) Bolus with Clopidogrel 300 mg bolus x1 and initiate dual antiplatelet therapy with Aspirin 81 mg daily and Clopidogrel 75 mg daily Antihypertensives PRN if Blood pressure is greater than 220/120 or there is a concern for End organ damage/contraindications for permissive HTN. If blood pressure is greater than 220/120 give labetalol PO or IV or Vasotec IV with a goal of 15% reduction in BP during the first 24 hours. Sign Out: Discussed with Emergency Department Provider Advanced Imaging: Advanced imaging has been ordered. Results pending. Metrics: Last Known Well: 02/18/2025 12:00:15 Dispatch Time: 02/18/2025 16:43:58 Arrival Time: 02/18/2025 15:57:23 Initial Response Time: 02/18/2025 16:46:52 Symptoms: left hand weakness, speech difficulty. Initial patient interaction: 02/18/2025 16:58:13 NIHSS Assessment Completed: 02/18/2025 17:14:49 Patient is not a candidate for Thrombolytic. Thrombolytic Medical Decision: 02/18/2025 17:16:50 Patient was not deemed candidate for Thrombolytic because of following reasons: Resolved symptoms . CT Head: I personally reviewed all the CT images that were available to me and it showed: no hemorrhage Primary Provider Notified of Diagnostic Impression and Management Plan on: 02/18/2025 17:40:03 History of Present Illness: Patient is a 89 year old Female. Patient was brought by private transportation with symptoms of left hand weakness, speech difficulty. 89 yo LH F with PMH of HTN, CHF, CA presents to ED with cough, decreased appetite and transient left hand weakness and speech difficulty. Patient reports that she had left hand weakness and dropped a pen out of her hand this morning doing a crossword puzzle. Then had trouble getting her words out for about 5 minutes before symptoms resolved. She denies FERREIRA, chest pain, fever, vomiting, vision changes. She reports stopping blood thinners some time ago due to bleeding issues. Past Medical History: Coronary Artery Disease Medications: No Anticoagulant use No Antiplatelet use Reviewed EMR for current medications Allergies: NKDA Social History: Smoking: Yes Family History: There is no family history of premature cerebrovascular disease pertinent to this consultation ROS : 14 Points Review of Systems was performed and was negative except mentioned in HPI. Past Surgical History: There Is No Surgical History Contributory To Todays Visit Examination: BP(137/77), Pulse(90), 1A: Level of Consciousness - Alert; keenly responsive + 0 1B: Ask Month and Age - Both Questions Right + 0 1C: Blink Eyes & Squeeze Hands - Performs Both Tasks + 0 2: Test Horizontal Extraocular Movements - Normal + 0 3: Test Visual [place] - No Visual Loss + 0 4: Test Facial Palsy (Use Grimace if Obtunded) - Normal symmetry + 0 5A: Test Left Arm Motor Drift - No Drift for 10 Seconds + 0 5B: Test Right Arm Motor Drift - No Drift for 10 Seconds + 0 6A: Test Left Leg Motor Drift - No Drift for 5 Seconds + 0 6B: Test Right Leg Motor Drift - No Drift for 5 Seconds + 0 7: Test Limb Ataxia (FNF/Heel-Ruiz) - No Ataxia + 0 8: Test Sensation - Normal; No sensory loss + 0 9: Test Language/Aphasia - Normal; No aphasia + 0 10: Test Dysarthria - Normal + 0 11: Test Extinction/Inattention - No abnormality + 0 NIHSS Score: 0 Pre-Morbid Modified Damián Scale: 0 Points = No symptoms at all Spoke with : Dr. Leavitt This consult was conducted in real time using interactive audio and video technology. Patient was informed of the technology being used for this visit and agreed to proceed. Patient located in hospital and provider located at home/office setting. Patient is being evaluated for possible acute neurologic impairment and high probability of imminent or life-threatening deterioration. I spent total of 51 minutes providing care to this patient, including time for face to face visit via telemedicine, review of medical records, imaging studies and discussion of findings with providers, the patient and/or family. Dr Fito [facility] For Inpatient follow-up with [facility] physician please call [facility] at . As we are not an outpatient service for any post hospital discharge needs please contact the hospital for assistance. If you have any questions for the [facility] physicians or need to reconsult for clinical or diagnostic changes please contact us via [facility] at . Allergies Allergies Allergy/AdvReac Type Severity Reaction Status Date / Time No Known Allergies Allergy Verified 02/18/25 16:16 Past Medical History Past Medical History: CHF, Hypertension and CA Past Surgical History Surgical History: Angioplasty/Stents and Hysterectomy Family History Family Medical History: CA, Coronary Artery Disease and Hypertension Social History Type of Tobacco Use: None Alcohol Use: None Medications Home Medications: No Known Allergies Allergy (Verified 02/18/25 16:16) Physical Exam Vital Signs: Vital Signs Temperature 98.1 F Pulse Rate 90 Respiratory Rate 22 Blood Pressure 137/77 O2 Sat by Pulse Oximetry 96
[2025-02-18] MEDS: NS 500 ML IV 500 ML IV ONE (17:59)
[2025-02-18] MEDS: APRESOLINE INJ 20 MG VIAL IVP ONE ×2 (19:01→19:38)
[2025-02-18] MEDS: ZOFRAN INJ 4 MG VIAL IVP ONE (20:06)
[2025-02-18] MEDS: CATAPRES TAB 0.2 MG PO ONE (20:17)
[2025-02-18] MEDS ORDERED: CONSULT PHARMACY - POTASSIUM & MAGNESIUM XX SCH (20:35)
[2025-02-18] MEDS ORDERED: ZOFRAN ODT PO PRN (20:35)
[2025-02-18] MEDS ORDERED: NS 1,000 ML IV 1,000 ML ONE (20:38)
[2025-02-18] MEDS: NS 1,000 ML IV 1,000 ML IV SCH ×2 (20:48→23:30)
[2025-02-18] MEDS: COREG TAB 3.125 MG PO SCH (21:55)
[2025-02-18] MEDS: PHENERGAN INJ 25 MG IM PRN (21:56)
[2025-02-19] MEDS: ZOFRAN INJ 4 MG VIAL ONE (05:02)
[2025-02-19 05:12] LABS: BLOOD/HEMOGLOBIN,URINE 1+ (NEGATIVE); LEUKOCYTE ESTERASE ,URINE NEGATIVE (NEGATIVE); NITRITES,URINE NEGATIVE (NEGATIVE)
[2025-02-19 05:18] LABS: APPEARANCE,URINE CLEAR (CLEAR)
[2025-02-19 05:20] LABS: HYALINE CASTS, URINE MANY /LPF (NEGATIVE); SQUAMOUS EPITHELIAL CELL,UR NUMEROUS /HPF (NEGATIVE)
[2025-02-19 05:43] LABS: MEAN PLATELET VOLUME 8.4 fL (7.4-11.0); RED CELL DISTRIBUTION WIDTH 14.5 % (11.6-16.5)
[2025-02-19 06:02] LABS: CREATININE 2.18 mg/dL (0.55-1.02); eGFR NON BLACK RACES 23 (>60)
--- NOTE | 2025-02-19 08:01 | DR.H&P ---
H&P History & Physical for Day of: H&P Date: 02/18/25 Chief Complaint Chief Complaint: COUGH, WEAKNESS History of Present Illness History of Present Illness: Patient states she has stopped her anticoagulation medicines about 2 weeks ago. Today she had an episode of difficulty with her speech and weakness in her left hand dropping her pen. Patient was brought into the ER and stroke protocol was initiated. I spoke with Dr. Kenny from [facility] and he is suspected TIA instead of stroke. He recommended starting Plavix 200 mg today as a loading dose as well as aspirin 325. He recommended MRI in the morning and a TTE. CTA of head and neck was ordered but unable to perform due to patient's renal function. Past Medical History Past Medical History: CHF, Hypertension and [place] Past Surgical History Surgical History: Angioplasty/Stents and Hysterectomy Family History Family Medical History: [place], Coronary Artery Disease and Hypertension Social History Does patient currently use any type of tobacco product: No Type of Tobacco Use: None Does any household member use tobacco: No Alcohol Use: None Drug Use: None Medications Home Medications: Home Medications Medication Instructions Recorded Confirmed Type carvedilol 3.125 mg tablet 3.125 mg PO BID 09/22/23 History Allergies Allergies Allergy/AdvReac Type Severity Reaction Status Date / Time No Known Allergies Allergy Verified 02/18/25 16:16 Labs 02/19/25 05:05 02/19/25 05:05 Labs: Laboratory WBC 7.4 X10^3/uL (3.6-10.0) 02/19/25 05:05 RBC 4.00 X10^6/uL (3.5-5.4) 02/19/25 05:05 Hgb 12.8 g/dL (12.0-16.0) 02/19/25 05:05 Hct 36.1 % (36.0-47.0) 02/19/25 05:05 MCV 90.3 fL (80.0-100.0) 02/19/25 05:05 MCH 32.0 pg (27.0-34.0) 02/19/25 05:05 MCHC 35.5 g/dL (33.0-35.0) H 02/19/25 05:05 RDW 14.5 % (11.6-16.5) 02/19/25 05:05 Plt Count 267 X10^3/uL (150.0-450.0) 02/19/25 05:05 MPV 8.4 fL (7.4-11.0) 02/19/25 05:05 Neut % (Auto) 65.9 % (42.0-75.0) 02/19/25 05:05 Lymph % (Auto) 23.6 % (21.0-51.0) 02/19/25 05:05 [place] % (Auto) 9.4 % (0.0-13.0) 02/19/25 05:05 Eos % (Auto) 0.2 % (0.9-2.9) L 02/19/25 05:05 Baso % (Auto) 0.9 % (0.2-1.0) 02/19/25 05:05 Neut # (Auto) 4.9 x10^3/uL (2.2-4.8) H 02/19/25 05:05 Lymph # (Auto) 1.7 X10^3/uL (1.3-2.9) 02/19/25 05:05 [place] # (Auto) 0.7 x10^3/uL (0.3-0.8) 02/19/25 05:05 Eos # (Auto) 0.0 x10^3/uL (0.0-0.2) 02/19/25 05:05 Baso # (Auto) 0.1 X10^3/uL (0.0-0.1) 02/19/25 05:05 Absolute Nucleated RBC 0.1 /100WBC 02/19/25 05:05 PT 13.4 SECONDS (11.8-14.3) 02/18/25 16:23 INR Target Range - 02/18/25 16:23 INR 1.01 (0.8-1.3) 02/18/25 16:23 APTT 29.8 SECONDS (22.9-36.5) 02/18/25 16:23 PTT Comment - 02/18/25 16:23 Fibrinogen 433 mg/dL (239-489) 02/18/25 16:23 Sodium 131 mmol/L (136-145) L 02/19/25 05:05 Corrected Sodium TNP 02/19/25 05:05 Potassium 3.9 mmol/L (3.5-5.1) 02/19/25 05:05 Chloride 95 mmol/L (98-107) L 02/19/25 05:05 Carbon Dioxide 26.0 mmol/L (21-32) 02/19/25 05:05 BUN 34 mg/dL (7-18) H 02/19/25 05:05 Creatinine 2.18 mg/dL (0.55-1.02) H 02/19/25 05:05 Est GFR (MDRD) Af Amer 27 (>60) L 02/19/25 05:05 Est GFR (MDRD) Non-Af 23 (>60) L 02/19/25 05:05 Glucose 103 mg/dL (65-99) H 02/19/25 05:05 POC Glucose (mg/dL) 101 mg/dL (65-99) H 02/18/25 16:48 Hemoglobin A1c 5.9 % 02/18/25 16:23 Calcium 8.8 mg/dL (8.5-10.1) 02/19/25 05:05 Corrected Calcium TNP 02/19/25 05:05 Total Bilirubin 0.50 mg/dL (0.2-1.0) 02/19/25 05:05 AST 19 Units/L (15-37) 02/19/25 05:05 ALT 18 Units/L (12-78) 02/19/25 05:05 Alkaline Phosphatase 91 Units/L (46-116) 02/19/25 05:05 Creatine Kinase 68 Units/L (26-192) 02/18/25 16:23 Troponin I High Sens 55.9 ng/L (4.0-60.0) 02/18/25 16:23 B-Natriuretic Peptide 91.3 pg/mL (0-79) H 02/18/25 16:23 Total Protein 8.1 g/dL (6.4-8.2) 02/19/25 05:05 Albumin 3.7 g/dL (3.4-5.0) 02/19/25 05:05 Globulin 4.4 g/dL (2.5-4.5) 02/19/25 05:05 Albumin/Globulin Ratio 0.8 Ratio (1.1-2.1) L 02/19/25 05:05 Triglycerides 123 mg/dL (0-150) 02/18/25 16:23 Cholesterol 175 mg/dL (0-200) 02/18/25 16:23 LDL Cholesterol, Calc 76 mg/dL (0-100) 02/18/25 16:23 HDL Cholesterol 74 mg/dL (40-60) H 02/18/25 16:23 Cholesterol/HDL Ratio 2.4 (0.0-5.0) 02/18/25 16:23 Specimen Type Clean catch urine 02/19/25 05:04 Urine Color Yellow (YELLOW) 02/19/25 05:04 Urine Appearance Clear (CLEAR) 02/19/25 05:04 Urine pH 6.0 (5.0 - 8.0) 02/19/25 05:04 Ur Specific [place] 1.020 (1.000-1.030) 02/19/25 05:04 Urine Protein 3+ (NEGATIVE) 02/19/25 05:04 Urine Glucose (UA) Negative (NEGATIVE) 02/19/25 05:04 Urine Ketones Negative (NEGATIVE) 02/19/25 05:04 Urine Blood 1+ (NEGATIVE) 02/19/25 05:04 Urine Nitrite Negative (NEGATIVE) 02/19/25 05:04 Urine Bilirubin Negative (NEGATIVE) 02/19/25 05:04 Urine Urobilinogen Normal (NORMAL) 02/19/25 05:04 Ur Leukocyte Esterase Negative (NEGATIVE) 02/19/25 05:04 Urine RBC 5-10 /HPF (0-3) A 02/19/25 05:04 Urine WBC 3-5 /HPF (0-5) 02/19/25 05:04 Ur Squamous Epith Cells Numerous /HPF (NEGATIVE) 02/19/25 05:04 Urine Bacteria Trace /HPF (NEGATIVE) 02/19/25 05:04 Hyaline Casts Many /LPF (NEGATIVE) 02/19/25 05:04 Granular Casts Few /LPF (NEGATIVE) 02/19/25 05:04 Ur Culture Indicated? No/not indicated 02/19/25 05:04 Blood Type B POSITIVE 02/18/25 17:28 Blood Type B POSITIVE 02/18/25 17:28 Antibody Screen Negative 02/18/25 17:28 Review of Systems Constitutional: Weakness Eyes: No Symptoms Reported ENT: No Symptoms Reported Respiratory: Cough Cardiovascular: Palpitations Gastrointestinal: No Symptoms Reported Genitourinary: Dysuria and Incontinence Musculoskeletal: No Symptoms Reported Skin: No Symptoms Reported Neurological: Weakness Physical Exam Vital Signs: Vital Signs Temperature 98.8 F Temperature 98.6 F Pulse Rate [Right] 80 Pulse Rate [Right] 87 Respiratory Rate 18 Respiratory Rate 20 Blood Pressure [R ARM] 189/79 Blood Pressure [R ARM] 160/78 O2 Sat by Pulse Oximetry 95 O2 Sat by Pulse Oximetry 96 Oriented: Normal Eyes: Normal Nose: Normal Throat: Normal Respiratory: RLL Diminished and LLL Diminished Cardiovascular: Normal Auscultation: Bowel Sounds: Normal Palpation: Normal Tenderness: Normal Skin: Decreased [place] Musculoskeletal: Motor Deficit Psychiatric: Anxiety Mood Description: Anxious Speech Pattern: Clear Assessment/Plan (1) Brain TIA: Status: Acute Plan: ADMIT, BP CONTROL CE AND EKG CT HEAD ON ADMISSION, NEURO CONSULT IN ER VERIFY HOME MEDICATIONS GENTLE IV HYDRATION, PRN SUPPLEMENTAL O2 STRICT I&OS, UA/UC CXR ON ADMISSION (2) CKD (chronic kidney disease): Status: Acute (3) Hypertension: Status: Acute (4) Hyponatremia: Status: Acute (5) UTI (urinary tract infection): Status: Acute (6) URI (upper respiratory infection): Status: Acute
--- NOTE | 2025-02-19 08:21 | RAD ---
EXAMINATION: CHEST, 1 VIEW HISTORY: stroke alert; . COMPARISON STUDY: PA and lateral chest 09/06/2024 TECHNIQUE: A single view of the chest was obtained. FINDINGS: . Heart size is normal. No acute infiltrates. There is no pneumothorax. Hilar and mediastinal structures and bony structures are unremarkable. EKG leads overlie the chest. Technical artifacts overlie the chest wall.. IMPRESSION: No acute process in the chest. THIS IS AN ELECTRONICALLY VERIFIED FINAL REPORT 02/19/2025 8:18 AM - Electronically signed by Rene Nelson MD
[2025-02-19] MEDS: ASPIRIN EC 81 MG PO SCH (08:33)
[2025-02-19] MEDS: PLAVIX PO SCH (08:33)
[2025-02-19] MEDS: PROTONIX INJ 40 MG VIAL IVP SCH (08:40)
[2025-02-19] MEDS ORDERED: ASPIRIN PO SCH (09:00)
[2025-02-19] MEDS ORDERED: PHARMACY CONSULT XX SCH (09:00)
[2025-02-19] MEDS: CATAPRES TAB 0.1 MG PO ONE (13:01)
--- NOTE | 2025-02-19 13:43 | MRI ---
EXAMINATION: BRAIN W/O CON HISTORY: TIA ; . COMPARISON STUDY: Noncontrast CT brain 02/18/2025 TECHNIQUE: Multiplanar noncontrast MR images of the brain using multiple imaging sequences. FINDINGS: Diffusion-weighted axial images show no evidence of acute CVA or acute demyelination. No abnormal intra-axial or extra-axial mass, mass effect, or midline shift. FLAIR and T2 weighted images demonstrate multiple foci of abnormal high signal scattered within the deep white matter adjacent to the lateral ventricles and centrum semiovale regions bilaterally and central brainstem without associated mass effect. Consider chronic ischemic white matter changes from small vessel disease or other cause of gliosis. Ventricles normal size and shape. Normal flow void within the cavernous portions of the internal carotid arteries bilaterally and basilar artery. Sella and suprasellar regions, orbital globes and retro-orbital structures, paranasal sinuses, cervicomedullary junction appear intact. IMPRESSION: No evidence of acute CVA or acute demyelination. Chronic appearing brain parenchymal changes as described above. THIS IS AN ELECTRONICALLY VERIFIED FINAL REPORT 02/19/2025 1:39 PM - Electronically signed by Manju Kothari MD
[2025-02-19] MEDS: APRESOLINE INJ 20 MG VIAL IVP ONE (14:09)
[2025-02-19] MEDS: NORVASC TAB 5 MG PO SCH (16:09)
--- NOTE | 2025-02-19 17:08 | PCM.PROG ---
Progress Note Progress Note for Day of Date of Exam: 02/19/25 Subjective Subjective: PT IS 89WF, ER ADMISSION WITH TIA. PT HAD MRI OF BRAIN ORDERED FOR THIS AM. SHE REPORTS SHE HAS PMH OF GI BLEED LAST YEAR. PT CO DRY COUGH BUT NO INCREASE SOB AND MILD DYSPHAGIA BUT NO RECENT EGD. ROUTINE OCCULT STOOL ORDERED. PT'S BUN/CREAT 34/2.18 THIS AM. PT NA 131 FROM 128 ON ADMISSION. PT STATES SHE ATE BREAKFAST THIS AM AND FEELS BETTER. PT'S DAUGHTER AT BEDSIDE AND WE DISCUSSED DIAGNOSTIC TESTS AND LAB RESULTS. PLAN TO CONSULT PHYSICAL THERAPY TO AMBULATE PT AFTER HER MRI. Past Medical Family Social History Allergies: Allergies No Known Allergies Allergy (Verified 02/18/25 16:16) Vital Signs and I&O's Vital Signs: Vital Signs Temperature 97.9 F Temperature 97.5 F Pulse Rate [Right] 80 Pulse Rate [Right] 78 Pulse Rate [Right] 91 Respiratory Rate 19 Respiratory Rate 21 Blood Pressure [R ARM] 158/72 Blood Pressure [R ARM] 156/68 Blood Pressure [R ARM] 144/63 Blood Pressure [R ARM] 177/76 Blood Pressure [R ARM] 174/86 Blood Pressure [R ARM] 199/75 Blood Pressure [R ARM] 179/72 Blood Pressure [R ARM] 166/72 Blood Pressure [R ARM] 174/75 Blood Pressure [R ARM] 185/71 Blood Pressure [R ARM] 188/50 O2 Sat by Pulse Oximetry 96 O2 Sat by Pulse Oximetry 96 Intake and Output: Intake & Output 02/17/25 02/18/25 02/19/25 02/20/25 11:59 11:59 11:59 11:59 Intake Total 1082 / 1082 181 / 181 Output Total 400 / 400 Balance 1082 / 1082 -219 / -219 Physical Exam Oriented: Normal Eyes: Normal Nose: Normal Throat: Normal Respiratory: Diminished (MILD DIMINISHED LUNG BASES) Cardiovascular: Normal Auscultation: Bowel Sounds: Normal Tenderness: Normal Skin: Decreased [place] Musculoskeletal: Motor Deficit Psychiatric: Anxiety Mood Description: Calm Speech Pattern: Clear and Appropriate Laboratory and Diagnostics 02/19/25 05:05 02/19/25 05:05 Labs: Laboratory WBC 7.4 X10^3/uL (3.6-10.0) 02/19/25 05:05 RBC 4.00 X10^6/uL (3.5-5.4) 02/19/25 05:05 Hgb 12.8 g/dL (12.0-16.0) 02/19/25 05:05 Hct 36.1 % (36.0-47.0) 02/19/25 05:05 MCV 90.3 fL (80.0-100.0) 02/19/25 05:05 MCH 32.0 pg (27.0-34.0) 02/19/25 05:05 MCHC 35.5 g/dL (33.0-35.0) H 02/19/25 05:05 RDW 14.5 % (11.6-16.5) 02/19/25 05:05 Plt Count 267 X10^3/uL (150.0-450.0) 02/19/25 05:05 MPV 8.4 fL (7.4-11.0) 02/19/25 05:05 Neut % (Auto) 65.9 % (42.0-75.0) 02/19/25 05:05 Lymph % (Auto) 23.6 % (21.0-51.0) 02/19/25 05:05 [place] % (Auto) 9.4 % (0.0-13.0) 02/19/25 05:05 Eos % (Auto) 0.2 % (0.9-2.9) L 02/19/25 05:05 Baso % (Auto) 0.9 % (0.2-1.0) 02/19/25 05:05 Neut # (Auto) 4.9 x10^3/uL (2.2-4.8) H 02/19/25 05:05 Lymph # (Auto) 1.7 X10^3/uL (1.3-2.9) 02/19/25 05:05 [place] # (Auto) 0.7 x10^3/uL (0.3-0.8) 02/19/25 05:05 Eos # (Auto) 0.0 x10^3/uL (0.0-0.2) 02/19/25 05:05 Baso # (Auto) 0.1 X10^3/uL (0.0-0.1) 02/19/25 05:05 Absolute Nucleated RBC 0.1 /100WBC 02/19/25 05:05 PT 13.4 SECONDS (11.8-14.3) 02/18/25 16:23 INR Target Range - 02/18/25 16:23 INR 1.01 (0.8-1.3) 02/18/25 16:23 APTT 29.8 SECONDS (22.9-36.5) 02/18/25 16:23 PTT Comment - 02/18/25 16:23 Fibrinogen 433 mg/dL (239-489) 02/18/25 16:23 Sodium 131 mmol/L (136-145) L 02/19/25 05:05 Corrected Sodium TNP 02/19/25 05:05 Potassium 3.9 mmol/L (3.5-5.1) 02/19/25 05:05 Chloride 95 mmol/L (98-107) L 02/19/25 05:05 Carbon Dioxide 26.0 mmol/L (21-32) 02/19/25 05:05 BUN 34 mg/dL (7-18) H 02/19/25 05:05 Creatinine 2.18 mg/dL (0.55-1.02) H 02/19/25 05:05 Est GFR (MDRD) Af Amer 27 (>60) L 02/19/25 05:05 Est GFR (MDRD) Non-Af 23 (>60) L 02/19/25 05:05 Glucose 103 mg/dL (65-99) H 02/19/25 05:05 POC Glucose (mg/dL) 101 mg/dL (65-99) H 02/18/25 16:48 Hemoglobin A1c 5.9 % 02/18/25 16:23 Calcium 8.8 mg/dL (8.5-10.1) 02/19/25 05:05 Corrected Calcium TNP 02/19/25 05:05 Total Bilirubin 0.50 mg/dL (0.2-1.0) 02/19/25 05:05 AST 19 Units/L (15-37) 02/19/25 05:05 ALT 18 Units/L (12-78) 02/19/25 05:05 Alkaline Phosphatase 91 Units/L (46-116) 02/19/25 05:05 Creatine Kinase 68 Units/L (26-192) 02/18/25 16:23 Troponin I High Sens 55.9 ng/L (4.0-60.0) 02/18/25 16:23 B-Natriuretic Peptide 91.3 pg/mL (0-79) H 02/18/25 16:23 Total Protein 8.1 g/dL (6.4-8.2) 02/19/25 05:05 Albumin 3.7 g/dL (3.4-5.0) 02/19/25 05:05 Globulin 4.4 g/dL (2.5-4.5) 02/19/25 05:05 Albumin/Globulin Ratio 0.8 Ratio (1.1-2.1) L 02/19/25 05:05 Triglycerides 123 mg/dL (0-150) 02/18/25 16:23 Cholesterol 175 mg/dL (0-200) 02/18/25 16:23 LDL Cholesterol, Calc 76 mg/dL (0-100) 02/18/25 16:23 HDL Cholesterol 74 mg/dL (40-60) H 02/18/25 16:23 Cholesterol/HDL Ratio 2.4 (0.0-5.0) 02/18/25 16:23 Specimen Type Clean catch urine 02/19/25 05:04 Urine Color Yellow (YELLOW) 02/19/25 05:04 Urine Appearance Clear (CLEAR) 02/19/25 05:04 Urine pH 6.0 (5.0 - 8.0) 02/19/25 05:04 Ur Specific [place] 1.020 (1.000-1.030) 02/19/25 05:04 Urine Protein 3+ (NEGATIVE) 02/19/25 05:04 Urine Glucose (UA) Negative (NEGATIVE) 02/19/25 05:04 Urine Ketones Negative (NEGATIVE) 02/19/25 05:04 Urine Blood 1+ (NEGATIVE) 02/19/25 05:04 Urine Nitrite Negative (NEGATIVE) 02/19/25 05:04 Urine Bilirubin Negative (NEGATIVE) 02/19/25 05:04 Urine Urobilinogen Normal (NORMAL) 02/19/25 05:04 Ur Leukocyte Esterase Negative (NEGATIVE) 02/19/25 05:04 Urine RBC 5-10 /HPF (0-3) A 02/19/25 05:04 Urine WBC 3-5 /HPF (0-5) 02/19/25 05:04 Ur Squamous Epith Cells Numerous /HPF (NEGATIVE) 02/19/25 05:04 Urine Bacteria Trace /HPF (NEGATIVE) 02/19/25 05:04 Hyaline Casts Many /LPF (NEGATIVE) 02/19/25 05:04 Granular Casts Few /LPF (NEGATIVE) 02/19/25 05:04 Ur Culture Indicated? No/not indicated 02/19/25 05:04 Blood Type B POSITIVE 02/18/25 17:28 Blood Type B POSITIVE 02/18/25 17:28 Antibody Screen Negative 02/18/25 17:28 Plan (1) Brain TIA: Status: Acute Plan: ADMIT, BP CONTROL CE AND EKG CT HEAD ON ADMISSION, NEURO CONSULT IN ER VERIFY HOME MEDICATIONS GENTLE IV HYDRATION, PRN SUPPLEMENTAL O2 STRICT I&OS, UA/UC CXR ON ADMISSION (2) CKD (chronic kidney disease): Status: Acute (3) Hypertension: Status: Acute (4) Hyponatremia: Status: Acute (5) UTI (urinary tract infection): Status: Acute (6) URI (upper respiratory infection): Status: Acute
[2025-02-20 03:39] VITALS: O2SAT 96
[2025-02-20 05:41] LABS: MEAN PLATELET VOLUME 8.5 fL (7.4-11.0); RED CELL DISTRIBUTION WIDTH 14.8 % (11.6-16.5)
[2025-02-20 05:59] LABS: COR CA(FOR HYPOALB) 9.3 mg/dL (8.5-10.1); CREATININE 1.72 mg/dL (0.55-1.02); eGFR NON BLACK RACES 30 (>60)
[2025-02-20 07:55] VITALS: BP 163/71; PULSE 73; RESP 18; TEMP 97.6
[2025-02-20] MEDS: ROCEPHIN VIAL 1 GRAM 1 G in NS 100 ML IV 100 ML IV SCH (08:44)
--- NOTE | 2025-02-20 09:52 | RAD ---
EXAMINATION: CHEST, 1 VIEW HISTORY: chf; COPD ASTHMA HTN CHF HEART STENTS HYSTERECTOMY EXPL ABD . COMPARISON STUDY: 02/18/2025 TECHNIQUE: A single view of the chest was obtained. FINDINGS: . Heart size is normal. No acute infiltrates. There is no pneumothorax. Hilar and mediastinal structures and bony structures are unremarkable. Mitral annulus calcification.. IMPRESSION: No acute process in the chest. THIS IS AN ELECTRONICALLY VERIFIED FINAL REPORT 02/20/2025 9:48 AM - Electronically signed by Rene Nelson MD
== END 2025-02-20 11:15 | disposition home or self-care (01) ==
LOC: ER 15:57 → MED/SURG 15:57
PROVIDERS: ADMIT Internal Medicine; ATTEND Internal Medicine
DX: J44.9 Chronic obstructive pulmonary disease, unspecified; I12.9 Hypertensive chronic kidney disease with stage 1 through stage 4 chronic kidney disease, or unspecified chronic kidney disease; R94.31 Abnormal electrocardiogram [ECG] [EKG]; B96.29 Other Escherichia coli [E. coli] as the cause of diseases classified elsewhere; G45.8 Other transient cerebral ischemic attacks and related syndromes; B96.1 Klebsiella pneumoniae [K. pneumoniae] as the cause of diseases classified elsewhere; R05.8 Other specified cough; E87.1 Hypo-osmolality and hyponatremia; N17.8 Other acute kidney failure; N39.0 Urinary tract infection, site not specified; R13.11 Dysphagia, oral phase; R26.89 Other abnormalities of gait and mobility; N18.9 Chronic kidney disease, unspecified; Z16.11 Resistance to penicillins; J06.9 Acute upper respiratory infection, unspecified; Z86.79 Personal history of other diseases of the circulatory system